=== PATIENT | female | born 1995 | race Hispanic/Latino ===

== ENCOUNTER 2016-08-25 08:06 | Emergency (ER) | payer OTHER ==
[2016-08-25] MEDS ORDERED: ONDANSETRON 4MG/2ML VIAL (J2405) As Ordered ONE (08:23)
[2016-08-25 08:53] LABS: BASO % 0.1 % (0.0-1.0); EOS # 0.1 K/mm3 (0.0-0.50); EOS % 1.4 % (0.0-3.0); LARGE UNSTAINED CELL # 0.1 K/mm3 (0.0-0.4); LARGE UNSTAINED CELL % 0.8 % (0.0-4.0); LYMPH # 0.4 K/mm3 (1.5-6.5); LYMPH % 4.2 % (24.0-44.0); MEAN CORPUSCULAR HEMOGLOBIN 29.2 pg (27.0-33.0); MEAN CORPUSCULAR HGB CONC 32.1 g/dl (32.0-36.5); MEAN CORPUSCULAR VOLUME 91.1 fl (80.0-96.0); MONO # 0.3 K/mm3 (0.0-0.8); MONO % 3.3 % (0.0-5.0); NEUTROPHILS # 7.8 K/mm3 (1.8-7.7); NEUTROPHILS % 90.2 % (36.0-66.0); PLATELET COUNT, AUTOMATED 271 k/mm3 (150-450); RED CELL DISTRIBUTION WIDTH 12.4 % (11.5-14.5); WHITE BLOOD COUNT 8.6 K/mm3 (4.0-10.0)
[2016-08-25] MEDS ORDERED: KETOROLAC 30 MG/ML VIAL (J1885) As Ordered ONE (09:00)
[2016-08-25 09:12] LABS: ALBUMIN 4.4 GM/DL (3.2-5.2); ALBUMIN/GLOBULIN RATIO 1.05 (1.00-1.93); ALKALINE PHOSPHATASE 139 U/L (45-117); ALT/SGPT 38 U/L (12-78); AMYLASE 48 U/L (25-115); ANION GAP 6 MEQ/L (8-16); AST/SGOT 31 U/L (15-37); BILIRUBIN,DIRECT 0.1 MG/DL (0.0-0.2); BILIRUBIN,TOTAL 0.4 MG/DL (0.2-1.0); BLOOD UREA NITROGEN 11 MG/DL (7-18); CALCIUM LEVEL 8.7 MG/DL (8.5-10.1); CARBON DIOXIDE LEVEL 29 MEQ/L (21-32); CHLORIDE LEVEL 104 MEQ/L (98-107); CREATININE FOR GFR 0.76 MG/DL (0.55-1.02); GLOMERULAR FILTRATION RATE > 60.0 (>60); GLUCOSE, FASTING 117 MG/DL (70-105); POTASSIUM SERUM 4.4 MEQ/L (3.5-5.1); SODIUM LEVEL 139 MEQ/L (136-145); TOTAL PROTEIN 8.6 GM/DL (6.4-8.2)
--- NOTE | 2016-08-25 10:03 | REP ---
Right upper quadrant sonography: History: Biliary colic Comparison study: CT study from June 26, 2016. Findings: Scanning through the right upper quadrant of the abdomen demonstrates a normal sized, thin-walled gallbladder without evidence of stone or polyp. Common bile duct is normal measuring 0.3 cm in greatest diameter. No focal liver lesion is seen. Liver size is normal. No pancreatic abnormality is observed. No right renal abnormality is seen. There is no evidence of ascites. The right kidney measures 10.9 x 4.0 x 3 point a cm. Impression: Negative right upper quadrant sonography. Signed by Collin Wilkes MD 08/25/2016 09:55 A
--- NOTE | 2016-08-25 10:37 | EDDOCDS ---
Physician Documentation [facility] Name: Linda oRsario Age: 21 yrs Sex: Female : 1995 Arrival Date: 08/25/2016 Time: 08:06 Bed I4 / M4 Private MD: No Pcp Disposition: 08/25/16 10:29 Discharged to Home/Self Care. Impression: Nausea and vomiting, Diarrhea, unspecified, Upper abdominal pain, unspecified. - Condition is Stable. - Discharge Instructions: Nausea and Vomiting, Tynn-lf-Dvsv, Diarrhea, Kcsz-kd-Gats. - Prescriptions for ZOFRAN ODT 4 mg - dissolve 1 tablet by ORAL route 4 times per day As needed do not chew, do not swallow whole; 10 tablet. Tylenol 325 mg Oral Tablet - take 2 tablets by ORAL route every 6 hours as needed; 30 tablet. ketorolac 10 mg Oral Tablet - take 1 tablet by ORAL route 3 times per day As needed MDD- 30mg. Up to 5 days total use.; 15 tablet. - Medication Reconciliation, Local Pharmacy Hours, Referral List Call for Appointment form. - [facility] ; When: 1 - 2 days; Reason: Recheck today's complaints, Continuance of care. Follow up: Emergency Department; Reason: Worsening of conditions. - Problem is new. - Symptoms have improved. Historical: - Allergies: no known allergies; - Home Meds: 1. dietary supplement oral tab twice a day - PMHx: none; - PSHx: heart surgery as ; - Social history: Smoking status: Patient states was never smoker of tobacco. Preferred Language: [place] Citizen. - Family history: Not pertinent. - : The pt / caregiver states he / she is not on anticoagulants. Home medication list is obtained from family members. - Exposure Risk Screening:: None identified. CRYSTAL CUTTER: 08/25 08:14 LMP 08/04/2016 kr3 Vital Signs: 08:14 BP 128 / 67; Pulse 80; Resp 16; Temp 97.6(O); Pulse Ox 99% on R/A; Weight 68.95 kg / kr3 152.01 lbs (R); Height 5 ft. 1 in. (154.94 cm) (R); 09:20 Pain 3/10; js13 10:34 BP 132 / 63; Pulse 70; Resp 18; Temp 98.6; Pulse Ox 98% ; Pain 0/10; jam1 08:14 Body Mass Index 28.72 (68.95 kg, 154.94 cm) kr3 MDM: 08:20 NS 0.9% 1000 ml IV at bolus once ordered. ef1 08:20 Ondansetron 4 mg IVP once ordered. ef1 08:20 IV Saline Lock ordered. ef1 08:20 Undress patient appropriately for examination ordered. ef1 08:21 NOTHING BY MOUTH+DIET ordered. EDMS 08:22 Amylase Ordered. EDMS 08:22 Basic Metabolic Profile Ordered. EDMS 08:22 CBC with Diff Ordered. EDMS 08:22 Lipase Ordered. EDMS 08:22 Liver Profile Ordered. EDMS 08:22 Urinalysis Ordered. EDMS 08:22 Urine Culture Ordered. EDMS 08:24 UCG by Nursing ordered. ef1 08:27 ketorolac 30 mg IVP once ordered. ef1 08:28 Gallbladder US Ordered. EDMS 08:51 Financial registration complete. lg 08:56 [facility] Payment Agreement was scanned into [employer] and attached to record. lg 08:57 Obtain sample by nasopharyngeal swab ordered. ef1 08:59 -Influenza A&B Rapid Antigen - Nose Ordered. EDMS 09:47 Basic Metabolic Profile Reviewed. ef1 09:47 CBC with Diff Reviewed. ef1 09:47 Lipase Reviewed. ef1 09:47 Liver Profile Reviewed. ef1 09:47 Urinalysis Reviewed. ef1 09:47 Amylase Reviewed. ef1 09:47 -Influenza A&B Rapid Antigen - Nose Reviewed. ef1 Point of Care Testing: Urine : 09:49 hCG Reading: Negative; Control Reading: Positive; 13 Ranges: Administered Medications: 08:42 Drug: NS 0.9% 1000 ml [sodium chloride 0.9 % intravenous solution] Route: IV; Rate: js13 bolus; Site: left antecubital; 10:33 Follow up: IV Status: Completed infusion; IV Intake: 1000ml js13 08:42 Drug: Ondansetron 4 mg [ondansetron HCl 2 mg/mL intravenous solution (2 mL)] Route: js13 IVP; Site: left antecubital; 09:00 Follow up: Response: Nausea is decreased js13 09:06 Drug: ketorolac 30 mg [ketorolac 30 mg/mL (1 mL) injection solution (1 mL)] Route: IVP; js13 Site: left antecubital; 09:20 Follow up: Pain 09/27 Adult; Response: Pain is decreased js13 Signatures: Dispatcher [employer] Stefan Reed, Leonel Reg lg Diana Pappas,RN RN kr3 Samantha Prince, PABritniC PABritniC ef1 Linnea Fuentes RN RN js13 The chart was reviewed and I authenticate all verbal orders and agree with the evaluation and treatment provided.Attachments: 08:56 [facility] Payment Agreement lg MTDD
--- NOTE | 2016-08-25 10:37 | EDDOCDS ---
Nurse's Notes [facility] Name: Linda Rosario Age: 21 yrs Sex: Female : 1995 Arrival Date: 08/25/2016 Time: 08:06 Bed I4 / M4 Private MD: No Pcp Diagnosis: Nausea and vomiting;Diarrhea, unspecified;Upper abdominal pain, unspecified Presentation: 08/25 08:12 Presenting complaint: states: vomiting began last night. Diarrhea last night kr3 plus middle of abdomen pain. Adult Sepsis Screening: The patient does not have new or worsening altered mentation. Patient's respiratory rate is less than 22. Systolic blood pressure is greater than 100. Patient has a qSOFA score of 0- Negative Sepsis Screen. Suicide/Homicide risk assessment- the patient denies having any suicidal and/or homicidal ideations and does not present with any other emotional, behavioral or mental health complaints. Status: Patient is not a server service assistant or dependent. Transition of care: patient was not received from another setting of care. 08:12 Acuity: MARIOLA Level 3 kr3 08:12 Method Of Arrival: Walkin/Carried/Asstd kr3 Triage Assessment: 08:14 General: Appears in no apparent distress, comfortable, Behavior is appropriate for age, kr3 cooperative. Pain: Location: epigastric area Pain currently is 8 out of 10 on a pain scale. Quality of pain is described as burning. HIV screening NA for this visit Offered previously. Respiratory: Respiratory effort is even, unlabored. GI: Reports diarrhea, nausea, vomiting. Derm: Skin is normal. JACKER: 08:14 LMP 08/04/2016 kr3 Historical: - Allergies: no known allergies; - Home Meds: 1. dietary supplement oral tab twice a day - PMHx: none; - PSHx: heart surgery as ; - Social history: Smoking status: Patient states was never smoker of tobacco. Preferred Language: Bulgarian. - Family history: Not pertinent. - : The pt / caregiver states he / she is not on anticoagulants. Home medication list is obtained from family members. - Exposure Risk Screening:: None identified. Screenin:25 Screening information is obtained from the patient, family members. Fall risk: No risks kr3 identified. Assistance ADL's: requires no assistance with activities of daily living. Abuse/DV Screen: The patient / caregiver reports he/she is: not in a situation that causes fear, pain or injury. Nutritional screening: No deficits noted. Advance Directives: Currently, there is no health care proxy. home support is adequate. Assessment: 08:47 General: Appears in no apparent distress, Behavior is appropriate for age, cooperative. js13 Pain: Pain currently is 4 out of 10 on a pain scale. Neurological: Level of Consciousness is awake, alert. Respiratory: Airway is patent Respiratory effort is even, unlabored, Respiratory pattern is regular, symmetrical. GI: Abdomen is non- distended Bowel sounds present X 4 quads. Abd is soft Abd is tender to palpation Reports nausea, vomiting. Derm: Skin is pink, warm & dry. 10:00 General: Appears in no apparent distress, Behavior is appropriate for age, cooperative. js13 Pain: Pain currently is 2 out of 10 on a pain scale. Neurological: Level of Consciousness is awake, alert. Respiratory: Airway is patent Respiratory effort is even, unlabored, Respiratory pattern is regular, symmetrical. GI: Abdomen is non- distended Bowel sounds present X 4 quads. Abd is soft Abd is tender to palpation. Derm: Skin is pink, warm & dry. Vital Signs: 08:14 BP 128 / 67; Pulse 80; Resp 16; Temp 97.6(O); Pulse Ox 99% on R/A; Weight 68.95 kg (R); kr3 Height 5 ft. 1 in. (154.94 cm) (R); 09:20 Pain 3/10; js13 10:34 BP 132 / 63; Pulse 70; Resp 18; Temp 98.6; Pulse Ox 98% ; Pain 0/10; jam1 08:14 Body Mass Index 28.72 (68.95 kg, 154.94 cm) kr3 Vitals: 08:14 Log In Time: August 25, 2016 at 08:06. kr3 ED Course: 08:08 Patient visited by Ty Chung Reg. mpb 08:08 Patient moved to Waiting mpb 08:09 No Pcp is Private Physician. mpb 08:13 Triage Initiated kr3 08:19 Patient moved to I4 / M4 kr3 08:20 Samantha Prince PA-C is PHCP. ef1 08:20 Lorenza Michelle MD is Attending Physician. ef1 08:20 Patient visited by Samantha Prince PA-C. ef1 08:42 Amylase Sent. js13 08:42 Basic Metabolic Profile Sent. js13 08:42 CBC with Diff Sent. js13 08:42 Lipase Sent. js13 08:42 Liver Profile Sent. js13 08:42 Inserted saline lock: 20 gauge in left The patient tolerated the procedure well. upper kr3 arm. 08:43 No procedures done that require assistance. Labs drawn. (by ED staff). Sent per order js13 to lab. 08:46 Patient visited by Samantha Prince PA-C. ef1 08:47 Patient visited by Linnea Fuentes RN. js13 08:53 Urinalysis Sent. jam1 08:53 Urine Culture Sent. jam1 08:56 Patient name changed from Linda\S\\S\Ramos Rosario\S\ to Linda\S\ \S\Ramos Rosario. EDMS 08:56 [facility] Payment Agreement was scanned into [employer] and attached to record. lg 09:06 -Influenza A&B Rapid Antigen - Nose Sent. js13 09:19 Patient visited by Samantha Prince PA-C. ef1 09:36 Patient moved to Ultrasound am17 09:47 Patient visited by Samantha Prince PA-C. ef1 09:48 Patient moved to I4 / M4 am17 09:55 Pt greeted and oriented to ED. Patient advised of names of staff involved in care, jam1 location of call hernadez, wait times and NPO status. Patient has correct armband on for positive identification. Placed in gown. Bed in low position. Call light in reach. Side rails up X 1. Adult w/ patient. Door closed. 10:00 The patient / caregiver is instructed regarding the plan of care and ED course. js13 10:00 Discontinued IV lock intact, bleeding controlled, pressure dressing applied, No js13 redness/swelling at site. 10:09 Gallbladder US Returned. EDMS 10:23 Patient visited by Samantha Prince PA-C. ef1 10:29 [facility] is Referral Physician. ef1 Administered Medications: 08:42 Drug: NS 0.9% 1000 ml [sodium chloride 0.9 % intravenous solution] Route: IV; Rate: js13 bolus; Site: left antecubital; 10:33 Follow up: IV Status: Completed infusion; IV Intake: 1000ml 08:42 Drug: Ondansetron 4 mg [ondansetron HCl 2 mg/mL intravenous solution (2 mL)] Route: IVP; Site: left antecubital; 09:00 Follow up: Response: Nausea is decreased 09:06 Drug: ketorolac 30 mg [ketorolac 30 mg/mL (1 mL) injection solution (1 mL)] Route: IVP; [facility] Site: left antecubital; 09:20 Follow up: Pain 09/27 Adult; Response: Pain is decreased Point of Care Testing: Urine : 09:49 hCG Reading: Negative; Control Reading: Positive; Ranges: Intake: 10:33 IV: 1000.00ml; Total: 1000.00ml. Order Results: Lab Order: Amylase; SPEC'M 08/25/16 08:41 Test: AMYLASE; Value: 48; Range: 25-115; Units: U/L; Status: F Lab Order: Basic Metabolic Profile; SPEC'M 08/25/16 08:41 Test: GLUCOSE, FASTING; Value: 117; Range: 70-105; Abnormal: Above high normal; Units: MG/DL; Status: F Test: BLOOD UREA NITROGEN; Value: 11; Range: 7-18; Units: MG/DL; Status: F Test: CREATININE FOR GFR; Value: 0.76; Range: 0.55-1.02; Units: MG/DL; Status: F Test: GLOMERULAR FILTRATION RATE; Value: > 60.0; Range: >60; Status: F Test: SODIUM LEVEL; Value: 139; Range: 136-145; Units: MEQ/L; Status: F Test: POTASSIUM SERUM; Value: 4.4; Range: 3.5-5.1; Units: MEQ/L; Status: F Test: CHLORIDE LEVEL; Value: 104; Range: 98-107; Units: MEQ/L; Status: F Test: CARBON DIOXIDE LEVEL; Value: 29; Range: 21-32; Units: MEQ/L; Status: F Test: ANION GAP; Value: 6; Range: 8-16; Abnormal: Below low normal; Units: MEQ/L; Status: F Test: CALCIUM LEVEL; Value: 8.7; Range: 8.5-10.1; Units: MG/DL; Status: F Test Note: ; Units are mL/min/1.73 m2 Chronic Kidney Disease Staging per NKF: Stage I & II GFR >=60 Normal to Mildly Decreased Stage III GFR 30-59 Moderately Decreased Stage IV GFR 15-29 Severely Decreased Stage V GFR <15 Very Little GFR Left ESRD GFR <15 on PROGRAM PRODUCTION SPECIALIST Lab Order: CBC with Diff; SPEC'M 08/25/16 08:40 Test: WHITE BLOOD COUNT; Value: 8.6; Range: 4.0-10.0; Units: K/mm3; Status: F Test: RED BLOOD COUNT; Value: 4.93; Range: 4.00-5.40; Units: M/mm3; Status: F Test: HEMOGLOBIN; Value: 14.4; Range: 12.0-16.0; Units: g/dl; Status: F Test: HEMATOCRIT; Value: 44.9; Range: 36.0-47.0; Units: %; Status: F Test: MEAN CORPUSCULAR VOLUME; Value: 91.1; Range: 80.0-96.0; Units: fl; Status: F Test: MEAN CORPUSCULAR HEMOGLOBIN; Value: 29.2; Range: 27.0-33.0; Units: pg; Status: F Test: MEAN CORPUSCULAR HGB CONC; Value: 32.1; Range: 32.0-36.5; Units: g/dl; Status: F Test: RED CELL DISTRIBUTION WIDTH; Value: 12.4; Range: 11.5-14.5; Units: %; Status: F Test: PLATELET COUNT, AUTOMATED; Value: 271; Range: 150-450; Units: k/mm3; Status: F Test: NEUTROPHILS %; Value: 90.2; Range: 36.0-66.0; Abnormal: Above high normal; Units: %; Status: F Test: LYMPH %; Value: 4.2; Range: 24.0-44.0; Abnormal: Below low normal; Units: %; Status: F Test: MONO %; Value: 3.3; Range: 0.0-5.0; Units: %; Status: F Test: EOS %; Value: 1.4; Range: 0.0-3.0; Units: %; Status: F Test: BASO %; Value: 0.1; Range: 0.0-1.0; Units: %; Status: F Test: LARGE UNSTAINED CELL %; Value: 0.8; Range: 0.0-4.0; Units: %; Status: F Test: NEUTROPHILS #; Value: 7.8; Range: 1.8-7.7; Abnormal: Above high normal; Units: K/mm3; Status: F Test: LYMPH #; Value: 0.4; Range: 1.5-6.5; Abnormal: Below low normal; Units: K/mm3; Status: F Test: MONO #; Value: 0.3; Range: 0.0-0.8; Units: K/mm3; Status: F Test: EOS #; Value: 0.1; Range: 0.0-0.50; Units: K/mm3; Status: F Test: BASO #; Value: 0.0; Range: 0.0-0.2; Units: K/mm3; Status: F Test: LARGE UNSTAINED CELL #; Value: 0.1; Range: 0.0-0.4; Units: K/mm3; Status: F Lab Order: Lipase; SPEC'M 08/25/16 08:41 Test: LIPASE; Value: 70; Range: 73-393; Abnormal: Below low normal; Units: U/L; Status: F Lab Order: Liver Profile; SPEC'M 08/25/16 08:41 Test: AST/SGOT; Value: 31; Range: 15-37; Units: U/L; Status: F Test: ALT/SGPT; Value: 38; Range: 12-78; Units: U/L; Status: F Test: ALKALINE PHOSPHATASE; Value: 139; Range: 45-117; Abnormal: Above high normal; Units: U/L; Status: F Test: BILIRUBIN,TOTAL; Value: 0.4; Range: 0.2-1.0; Units: MG/DL; Status: F Test: BILIRUBIN,DIRECT; Value: 0.1; Range: 0.0-0.2; Units: MG/DL; Status: F Test: TOTAL PROTEIN; Value: 8.6; Range: 6.4-8.2; Abnormal: Above high normal; Units: GM/DL; Status: F Test: ALBUMIN; Value: 4.4; Range: 3.2-5.2; Units: GM/DL; Status: F Test: ALBUMIN/GLOBULIN RATIO; Value: 1.05; Range: 1.00-1.93; Status: F Lab Order: Urinalysis; SPEC'M 08/25/16 08:50 Test: APPEARANCE, URINE; Value: HAZY; Range: CLEAR; Status: F Test: COLOR, URINE; Value: YELLOW; Range: YELLOW; Status: F Test: PH,URINE; Value: 8.0; Range: 5.0-9.0; Units: UNITS; Status: F Test: SPECIFIC GRAVITY URINE AUTO; Value: 1.021; Range: 1.002-1.035; Status: F Test: PROTEIN, URINE AUTO; Value: NEGATIVE; Range: NEGATIVE; Units: mg/dL; Status: F Test: GLUCOSE, URINE (UA) AUTO; Value: NEGATIVE; Range: NEGATIVE; Units: mg/dL; Status: F Test: KETONE, URINE AUTO; Value: TRACE; Range: NEGATIVE; Abnormal: Above high normal; Units: mg/dL; Status: F Test: UROBILINOGEN, URINE AUTO; Value: 0.2; Range: 0.0-2.0; Units: mg/dL; Status: F Test: BILIRUBIN, URINE AUTO; Value: NEGATIVE; Range: NEGATIVE; Status: F Test: NITRITE, URINE AUTO; Value: NEGATIVE; Range: NEGATIVE; Status: F Test: LEUKOCYTE ESTERASE, URINE AUTO; Value: NEGATIVE; Range: NEGATIVE; Status: F Test: BLOOD, URINE BLOOD; Value: NEGATIVE; Range: NEGATIVE; Status: F Test: WBC, URINE AUTO; Value: 1; Range: 0-3; Units: /HPF; Status: F Test: RBC, URINE AUTO; Value: 1; Range: 0-3; Units: /HPF; Status: F Test: BACTERIA, URINE AUTO; Value: NEGATIVE; Range: NEGATIVE; Status: F Test: SQUAMOUS EPITHELIAL CELL UR AU; Value: 2; Range: 0-6; Units: /HPF; Status: F Test: MUCUS, URINE; Value: SMALL; Range: NEGATIVE; Status: F Test: HYALINE CAST, URINE AUTO; Value: 0; Range: 0-1; Units: /LPF; Status: F Lab Order: -Influenza A&B Rapid Antigen - Nose; SPEC'M 08/25/16 09:04 Test: INFLUENZA A RAPID SCR by ICA; Value: INFLUENZA A RESULTS NEGATIVE; Status: F Test: INFLUENZA A RAPID SCR by ICA; Value: Comments:; Status: F Test: INFLUENZA B RAPID SCR by ICA; Value: INFLUENZA B RESULTS NEGATIVE; Status: F Test Note: ; The Influenza test is a direct rapid immunoassay for the qualitative detection of Influenza viral antigen. Cell culture (Viral Culture) testing should be considered to confirm NEGATIVE results and to assist in detecting other viruses that can provide similar clinical symptoms. Please contact the lab within 24 hours ([phone]) if confirmatory testing is desired. Radiology Order: Gallbladder US Test: Gallbladder US REASON FOR EXAMINATION: Biliary Colic; Right upper quadrant sonography:; ; History: Biliary colic; ; Comparison study: CT study from June 26, 2016.; ; Findings: Scanning through the right upper quadrant of the abdomen demonstrates a; normal sized, thin-walled gallbladder without evidence of stone or polyp. Common; bile duct is normal measuring 0.3 cm in greatest diameter. No focal liver lesion; is seen. Liver size is normal. No pancreatic abnormality is observed. No right; renal abnormality is seen. There is no evidence of ascites. The right kidney; measures 10.9 x 4.0 x 3 point a cm.; ; Impression:; ; Negative right upper quadrant sonography.; ; ; Signed by; Collin Wilkes MD 08/25/2016 09:55 A; Outcome: 10:00 Discharge Assessment: Patient awake, alert and oriented x 3. No cognitive and/or js13 functional deficits noted. Patient verbalized understanding of disposition instructions. patient administered narcotics - no. The following High Risk Discharge criteria are identified: None. Discharged to home ambulatory, with significant other. Condition: stable. Discharge instructions given to patient, Instructed on discharge instructions, follow up and referral plans. medication usage, Demonstrated understanding of instructions, medications, Pt was receptive of discharge instructions/ teaching. Prescriptions given X 3. Ultrasound Study completed. Property :Personal belongings accompany Pt. 10:29 Discharge ordered by Provider. ef1 10:36 Patient left the ED. js13 Signatures: Dispatcher [employer] EDMS Alexa Cornejo, SCIENTIFIC AFFAIRS MANAGER SCIENTIFIC AFFAIRS MANAGER jam1 Stefan Ruiz, Leonel Reg lg Diana Pappas,RN RN kr3 Samantha Prince, PA-C PA-C ef1 Linnea Fuentes,RN RN js13 Marcelle Bermudez am17 Ty Chung, Reg Reg mpb MTDD
--- NOTE | 2016-08-27 11:37 | EDDOCDS ---
Physician Documentation [facility] Name: Linda Moody Age: 21 yrs Sex: Female : 1995 Arrival Date: 08/25/2016 Time: 08:06 Bed I4 / M4 Private MD: No Pcp Disposition: 08/25/16 10:29 Discharged to Home/Self Care. Impression: Nausea and vomiting, Diarrhea, unspecified, Upper abdominal pain, unspecified. - Condition is Stable. - Discharge Instructions: Nausea and Vomiting, Qgyf-sw-Uugq, Diarrhea, Hftb-qt-Hcoh. - Prescriptions for ZOFRAN ODT 4 mg - dissolve 1 tablet by ORAL route 4 times per day As needed do not chew, do not swallow whole; 10 tablet. Tylenol 325 mg Oral Tablet - take 2 tablets by ORAL route every 6 hours as needed; 30 tablet. ketorolac 10 mg Oral Tablet - take 1 tablet by ORAL route 3 times per day As needed MDD- 30mg. Up to 5 days total use.; 15 tablet. - Medication Reconciliation, Local Pharmacy Hours, Referral List Call for Appointment form. - [facility] ; When: 1 - 2 days; Reason: Recheck today's complaints, Continuance of care. Follow up: Emergency Department; Reason: Worsening of conditions. - Problem is new. - Symptoms have improved. Historical: - Allergies: no known allergies; - Home Meds: 1. dietary supplement oral tab twice a day - PMHx: none; - PSHx: heart surgery as ; - Social history: Smoking status: Patient states was never smoker of tobacco. Preferred Language: Faroese. - Family history: Not pertinent. - : The pt / caregiver states he / she is not on anticoagulants. Home medication list is obtained from family members. - Exposure Risk Screening:: None identified. SUPERVISOR TAN ROOM: 08/25 08:14 LMP 08/04/2016 kr3 Vital Signs: 08:14 BP 128 / 67; Pulse 80; Resp 16; Temp 97.6(O); Pulse Ox 99% on R/A; Weight 68.95 kg / kr3 152.01 lbs (R); Height 5 ft. 1 in. (154.94 cm) (R); 09:20 Pain 3/10; js13 10:34 BP 132 / 63; Pulse 70; Resp 18; Temp 98.6; Pulse Ox 98% ; Pain 0/10; jam1 08:14 Body Mass Index 28.72 (68.95 kg, 154.94 cm) kr3 MDM: 08:20 NS 0.9% 1000 ml IV at bolus once ordered. ef1 08:20 Ondansetron 4 mg IVP once ordered. ef1 08:20 IV Saline Lock ordered. ef1 08:20 Undress patient appropriately for examination ordered. ef1 08:21 NOTHING BY MOUTH+DIET ordered. EDMS 08:22 Amylase Ordered. EDMS 08:22 Basic Metabolic Profile Ordered. EDMS 08:22 CBC with Diff Ordered. EDMS 08:22 Lipase Ordered. EDMS 08:22 Liver Profile Ordered. EDMS 08:22 Urinalysis Ordered. EDMS 08:22 Urine Culture Ordered. EDMS 08:24 UCG by Nursing ordered. ef1 08:27 ketorolac 30 mg IVP once ordered. ef1 08:28 Gallbladder US Ordered. EDMS 08:51 Financial registration complete. lg 08:56 [facility] Payment Agreement was scanned into [employer] and attached to record. lg 08:57 Obtain sample by nasopharyngeal swab ordered. ef1 08:59 -Influenza A&B Rapid Antigen - Nose Ordered. EDMS 09:47 Basic Metabolic Profile Reviewed. ef1 09:47 CBC with Diff Reviewed. ef1 09:47 Lipase Reviewed. ef1 09:47 Liver Profile Reviewed. ef1 09:47 Urinalysis Reviewed. ef1 09:47 Amylase Reviewed. ef1 09:47 -Influenza A&B Rapid Antigen - Nose Reviewed. ef1 12:54 T-Sheet-- Draft Copy was scanned into [employer] and attached to record. klr 14:22 Radiology Report was scanned into [employer] and attached to record. gb Point of Care Testing: Urine : 09:49 hCG Reading: Negative; Control Reading: Positive; js13 Ranges: Administered Medications: 08:42 Drug: NS 0.9% 1000 ml [sodium chloride 0.9 % intravenous solution] Route: IV; Rate: js13 bolus; Site: left antecubital; 10:33 Follow up: IV Status: Completed infusion; IV Intake: 1000ml js13 08:42 Drug: Ondansetron 4 mg [ondansetron HCl 2 mg/mL intravenous solution (2 mL)] Route: js13 IVP; Site: left antecubital; 09:00 Follow up: Response: Nausea is decreased 13 09:06 Drug: ketorolac 30 mg [ketorolac 30 mg/mL (1 mL) injection solution (1 mL)] Route: IVP; js13 Site: left antecubital; 09:20 Follow up: Pain 3/10 Adult; Response: Pain is decreased Signatures: Dispatcher [employer] EDMS Mireya Gray, Reg Reg gb Stefan Ruiz, Reg Reg lg Diana Pappas,RN RN kr3 Samantha Prince PABritniC PA-C ef1 Linnea FuentesRN RN js13 Sharmila Carter klsherri The chart was reviewed and I authenticate all verbal orders and agree with the evaluation and treatment provided.Attachments: 08:56 [facility] Payment Agreement lg 12:54 T-Sheet-- Draft Copy klr Chart Complete MTDD
--- NOTE | 2016-08-27 11:37 | EDDOCDS ---
Physician Documentation [facility] Name: Linda Moody Age: 21 yrs Sex: Female : 1995 Arrival Date: 08/25/2016 Time: 08:06 Bed I4 / M4 Private MD: No Pcp Disposition: 08/25/16 10:29 Discharged to Home/Self Care. Impression: Nausea and vomiting, Diarrhea, unspecified, Upper abdominal pain, unspecified. - Condition is Stable. - Discharge Instructions: Nausea and Vomiting, [id number], Diarrhea, Pxiv-ba-[id number]. - Prescriptions for ZOFRAN ODT 4 mg - dissolve 1 tablet by ORAL route 4 times per day As needed do not chew, do not swallow whole; 10 tablet. Tylenol 325 mg Oral Tablet - take 2 tablets by ORAL route every 6 hours as needed; 30 tablet. ketorolac 10 mg Oral Tablet - take 1 tablet by ORAL route 3 times per day As needed MDD- 30mg. Up to 5 days total use.; 15 tablet. - Medication Reconciliation, Local Pharmacy Hours, Referral List Call for Appointment form. - [facility] ; When: 1 - 2 days; Reason: Recheck today's complaints, Continuance of care. Follow up: Emergency Department; Reason: Worsening of conditions. - Problem is new. - Symptoms have improved. Historical: - Allergies: no known allergies; - Home Meds: 1. dietary supplement oral tab twice a day - PMHx: none; - PSHx: heart surgery as ; - Social history: Smoking status: Patient states was never smoker of tobacco. Preferred Language: Brazilian. - Family history: Not pertinent. - : The pt / caregiver states he / she is not on anticoagulants. Home medication list is obtained from family members. - Exposure Risk Screening:: None identified. 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 1 in. (154.94 cm) (R); 09:20 Pain 3/10; js13 10:34 BP 132 / 63; Pulse 70; Resp 18; Temp 98.6; Pulse Ox 98% ; Pain 0/10; jam1 08:14 Body Mass Index 28.72 (68.95 kg, 154.94 cm) kr3 MDM: 08:20 NS 0.9% 1000 ml IV at bolus once ordered. ef1 08:20 Ondansetron 4 mg IVP once ordered. ef1 08:20 IV Saline Lock ordered. ef1 08:20 Undress patient appropriately for examination ordered. ef1 08:21 NOTHING BY MOUTH+DIET ordered. EDMS 08:22 Amylase Ordered. EDMS 08:22 Basic Metabolic Profile Ordered. EDMS 08:22 CBC with Diff Ordered. EDMS 08:22 Lipase Ordered. EDMS 08:22 Liver Profile Ordered. EDMS 08:22 Urinalysis Ordered. EDMS 08:22 Urine Culture Ordered. EDMS 08:24 UCG by Nursing ordered. ef1 08:27 ketorolac 30 mg IVP once ordered. ef1 08:28 Gallbladder US Ordered. EDMS 08:51 Financial registration complete. lg 08:56 [facility] [place] Payment Agreement was scanned into AOL and attached to record. lg 08:57 Obtain sample by nasopharyngeal swab ordered. ef1 08:59 -Influenza A&B Rapid Antigen - Nose Ordered. EDMS 09:47 Basic Metabolic Profile Reviewed. ef1 09:47 CBC with Diff Reviewed. ef1 09:47 Lipase Reviewed. ef1 09:47 Liver Profile Reviewed. ef1 09:47 Urinalysis Reviewed. ef1 09:47 Amylase Reviewed. ef1 09:47 -Influenza A&B Rapid Antigen - Nose Reviewed. ef1 12:54 T-Sheet-- Draft Copy was scanned into AOL and attached to record. klr 14:22 Radiology Report was scanned into AOL and attached to record. gb Point of Care Testing: Urine : 09:49 hCG Reading: Negative; Control Reading: Positive; js13 Ranges: Administered Medications: 08:42 Drug: NS 0.9% 1000 ml [sodium chloride 0.9 % intravenous solution] Route: IV; Rate: js13 bolus; Site: left antecubital; 10:33 Follow up: IV Status: Completed infusion; IV Intake: 1000ml js13 08:42 Drug: Ondansetron 4 mg [ondansetron HCl 2 mg/mL intravenous solution (2 mL)] Route: js13 IVP; Site: left antecubital; 09:00 Follow up: Response: Nausea is decreased 13 09:06 Drug: ketorolac 30 mg [ketorolac 30 mg/mL (1 mL) injection solution (1 mL)] Route: IVP; js13 Site: left antecubital; 09:20 Follow up: Pain 3/10 Adult; Response: Pain is decreased Signatures: Dispatcher MedHost EDMS Mireya Gray, Reg Reg gb Stefan Ruiz, Reg Reg lg Diana Pappas,RN RN kr3 Samantha Prince PABritniC PA-C ef1 Linnea FuentesRN RN js13 Sharmila Carter klsherri The chart was reviewed and I authenticate all verbal orders and agree with the evaluation and treatment provided.Attachments: 08:56 [facility] Payment Agreement lg 12:54 T-Sheet-- Draft Copy klr Chart Complete MTDD
--- NOTE | 2016-08-27 11:37 | EDDOCDS ---
Nurse's Notes [facility] Name: Linda Moody Age: 21 yrs Sex: Female : 1995 Arrival Date: 08/25/2016 Time: 08:06 Bed I4 / M4 Private MD: No Pcp Diagnosis: Nausea and vomiting;Diarrhea, unspecified;Upper abdominal pain, unspecified Presentation: 08/25 08:12 Presenting complaint: states: vomiting began last night. Diarrhea last night kr3 plus middle of abdomen pain. Adult Sepsis Screening: The patient does not have new or worsening altered mentation. Patient's respiratory rate is less than 22. Systolic blood pressure is greater than 100. Patient has a qSOFA score of 0- Negative Sepsis Screen. Suicide/Homicide risk assessment- the patient denies having any suicidal and/or homicidal ideations and does not present with any other emotional, behavioral or mental health complaints. Status: Patient is not a internal revenue service agent or dependent. Transition of care: patient was not received from another setting of care. 08:12 Acuity: MARIOLA Level 3 kr3 08:12 Method Of Arrival: Walkin/Carried/Asstd kr3 Triage Assessment: 08:14 General: Appears in no apparent distress, comfortable, Behavior is appropriate for age, kr3 cooperative. Pain: Location: epigastric area Pain currently is 8 out of 10 on a pain scale. Quality of pain is described as burning. HIV screening NA for this visit Offered previously. Respiratory: Respiratory effort is even, unlabored. GI: Reports diarrhea, nausea, vomiting. Derm: Skin is normal. 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 dietary supplement oral tab twice a day - PMHx: none; - PSHx: heart surgery as ; - Social history: Smoking status: Patient states was never smoker of tobacco. Preferred Language: Indonesian. - Family history: Not pertinent. - : The pt / caregiver states he / she is not on anticoagulants. Home medication list is obtained from family members. - Exposure Risk Screening:: None identified. Screenin:25 Screening information is obtained from the patient, family members. Fall risk: No risks kr3 identified. Assistance ADL's: requires no assistance with activities of daily living. Abuse/DV Screen: The patient / caregiver reports he/she is: not in a situation that causes fear, pain or injury. Nutritional screening: No deficits noted. Advance Directives: Currently, there is no health care proxy. home support is adequate. Assessment: 08:47 General: Appears in no apparent distress, Behavior is appropriate for age, cooperative. js13 Pain: Pain currently is 4 out of 10 on a pain scale. Neurological: Level of Consciousness is awake, alert. Respiratory: Airway is patent Respiratory effort is even, unlabored, Respiratory pattern is regular, symmetrical. GI: Abdomen is non- distended Bowel sounds present X 4 quads. Abd is soft Abd is tender to palpation Reports nausea, vomiting. Derm: Skin is pink, warm & dry. 10:00 General: Appears in no apparent distress, Behavior is appropriate for age, cooperative. js13 Pain: Pain currently is 2 out of 10 on a pain scale. Neurological: Level of Consciousness is awake, alert. Respiratory: Airway is patent Respiratory effort is even, unlabored, Respiratory pattern is regular, symmetrical. GI: Abdomen is non- distended Bowel sounds present X 4 quads. Abd is soft Abd is tender to palpation. Derm: Skin is pink, warm & dry. Vital Signs: 08:14 BP 128 / 67; Pulse 80; Resp 16; Temp 97.6(O); Pulse Ox 99% on R/A; Weight 68.95 kg (R); kr3 Height 5 ft. 1 in. (154.94 cm) (R); 09:20 Pain 3/10; js13 10:34 BP 132 / 63; Pulse 70; Resp 18; Temp 98.6; Pulse Ox 98% ; Pain 0/10; jam1 08:14 Body Mass Index 28.72 (68.95 kg, 154.94 cm) kr3 Vitals: 08:14 Log In Time: August 25, 2016 at 08:06. kr3 ED Course: 08:08 Patient visited by Ty Chung Reg. mpb 08:08 Patient moved to Waiting mpb 08:09 No Pcp is Private Physician. mpb 08:13 Triage Initiated kr3 08:19 Patient moved to I4 / M4 kr3 08:20 Samantha Prince PA-C is PHCP. ef1 08:20 Lorenza Michelle MD is Attending Physician. ef1 08:20 Patient visited by Samantha Prince PA-C. ef1 08:42 Amylase Sent. js13 08:42 Basic Metabolic Profile Sent. js13 08:42 CBC with Diff Sent. js13 08:42 Lipase Sent. js13 08:42 Liver Profile Sent. js13 08:42 Inserted saline lock: 20 gauge in left The patient tolerated the procedure well. upper kr3 arm. 08:43 No procedures done that require assistance. Labs drawn. (by ED staff). Sent per order js13 to lab. 08:46 Patient visited by Samantha Prince PA-C. ef1 08:47 Patient visited by Linnea Fuentes RN. js13 08:53 Urinalysis Sent. jam1 08:53 Urine Culture Sent. jam1 08:56 Patient name changed from Linda\S\\S\Ramos Rosario\S\ to Linda\S\ \S\Ramos Rosario. EDMS 08:56 [facility] [place] Payment Agreement was scanned into CallVU and attached to record. lg 09:06 -Influenza A&B Rapid Antigen - Nose Sent. js13 09:19 Patient visited by Samantha Prince PA-C. ef1 09:36 Patient moved to Ultrasound am17 09:47 Patient visited by Samantha Prince PA-C. ef1 09:48 Patient moved to I4 / M4 am17 09:55 Pt greeted and oriented to ED. Patient advised of names of staff involved in care, jam1 location of call hernadez, wait times and NPO status. Patient has correct armband on for positive identification. Placed in gown. Bed in low position. Call light in reach. Side rails up X 1. Adult w/ patient. Door closed. 10:00 The patient / caregiver is instructed regarding the plan of care and ED course. js13 10:00 Discontinued IV lock intact, bleeding controlled, pressure dressing applied, No js13 redness/swelling at site. 10:09 Gallbladder US Returned. EDMS 10:23 Patient visited by Samantha Prince PA-C. ef1 10:29 [facility] is Referral Physician. ef1 12:54 T-Sheet-- Draft Copy was scanned into CallVU and attached to record. klr 14:22 Radiology Report was scanned into CallVU and attached to record. gb 0206 11:49 Patient name changed from Linda\S\ \S\Ramos Rosario\S\ to Linda\S\ \S\Ramos-Rosario. EDMS Administered Medications: 08/25 08:42 Drug: NS 0.9% 1000 ml [sodium chloride 0.9 % intravenous solution] Route: IV; Rate: js13 bolus; Site: left antecubital; 10:33 Follow up: IV Status: Completed infusion; IV Intake: 1000ml 08:42 Drug: Ondansetron 4 mg [ondansetron HCl 2 mg/mL intravenous solution (2 mL)] Route: js13 IVP; Site: left antecubital; 09:00 Follow up: Response: Nausea is decreased 13 09:06 Drug: ketorolac 30 mg [ketorolac 30 mg/mL (1 mL) injection solution (1 mL)] Route: IVP; 13 Site: left antecubital; 09:20 Follow up: Pain 3/10 Adult; Response: Pain is decreased 13 Point of Care Testing: Urine : 09:49 hCG Reading: Negative; Control Reading: Positive; 13 Ranges: Intake: 10:33 IV: 1000.00ml; Total: 1000.00ml. 13 Order Results: Lab Order: Amylase; SPEC'M 08/25/16 08:41 Test: AMYLASE; Value: 48; Range: 25-115; Units: U/L; Status: F Lab Order: Basic Metabolic Profile; SPEC'M 08/25/16 08:41 Test: GLUCOSE, FASTING; Value: 117; Range: 70-105; Abnormal: Above high normal; Units: MG/DL; Status: F Test: BLOOD UREA NITROGEN; Value: 11; Range: 7-18; Units: MG/DL; Status: F Test: CREATININE FOR GFR; Value: 0.76; Range: 0.55-1.02; Units: MG/DL; Status: F Test: GLOMERULAR FILTRATION RATE; Value: > 60.0; Range: >60; Status: F Test: SODIUM LEVEL; Value: 139; Range: 136-145; Units: MEQ/L; Status: F Test: POTASSIUM SERUM; Value: 4.4; Range: 3.5-5.1; Units: MEQ/L; Status: F Test: CHLORIDE LEVEL; Value: 104; Range: 98-107; Units: MEQ/L; Status: F Test: CARBON DIOXIDE LEVEL; Value: 29; Range: 21-32; Units: MEQ/L; Status: F Test: ANION GAP; Value: 6; Range: 8-16; Abnormal: Below low normal; Units: MEQ/L; Status: F Test: CALCIUM LEVEL; Value: 8.7; Range: 8.5-10.1; Units: MG/DL; Status: F Test Note: ; Units are mL/min/1.73 m2 Chronic Kidney Disease Staging per NKF: Stage I & II GFR >=60 Normal to Mildly Decreased Stage III GFR 30-59 Moderately Decreased Stage IV GFR 15-29 Severely Decreased Stage V GFR <15 Very Little GFR Left ESRD GFR <15 on GAMBLING BROKER Lab Order: CBC with Diff; SPEC'M 08/25/16 08:40 Test: WHITE BLOOD COUNT; Value: 8.6; Range: 4.0-10.0; Units: K/mm3; Status: F Test: RED BLOOD COUNT; Value: 4.93; Range: 4.00-5.40; Units: M/mm3; Status: F Test: HEMOGLOBIN; Value: 14.4; Range: 12.0-16.0; Units: g/dl; Status: F Test: HEMATOCRIT; Value: 44.9; Range: 36.0-47.0; Units: %; Status: F Test: MEAN CORPUSCULAR VOLUME; Value: 91.1; Range: 80.0-96.0; Units: fl; Status: F Test: MEAN CORPUSCULAR HEMOGLOBIN; Value: 29.2; Range: 27.0-33.0; Units: pg; Status: F Test: MEAN CORPUSCULAR HGB CONC; Value: 32.1; Range: 32.0-36.5; Units: g/dl; Status: F Test: RED CELL DISTRIBUTION WIDTH; Value: 12.4; Range: 11.5-14.5; Units: %; Status: F Test: PLATELET COUNT, AUTOMATED; Value: 271; Range: 150-450; Units: k/mm3; Status: F Test: NEUTROPHILS %; Value: 90.2; Range: 36.0-66.0; Abnormal: Above high normal; Units: %; Status: F Test: LYMPH %; Value: 4.2; Range: 24.0-44.0; Abnormal: Below low normal; Units: %; Status: F Test: MONO %; Value: 3.3; Range: 0.0-5.0; Units: %; Status: F Test: EOS %; Value: 1.4; Range: 0.0-3.0; Units: %; Status: F Test: BASO %; Value: 0.1; Range: 0.0-1.0; Units: %; Status: F Test: LARGE UNSTAINED CELL %; Value: 0.8; Range: 0.0-4.0; Units: %; Status: F Test: NEUTROPHILS #; Value: 7.8; Range: 1.8-7.7; Abnormal: Above high normal; Units: K/mm3; Status: F Test: LYMPH #; Value: 0.4; Range: 1.5-6.5; Abnormal: Below low normal; Units: K/mm3; Status: F Test: MONO #; Value: 0.3; Range: 0.0-0.8; Units: K/mm3; Status: F Test: EOS #; Value: 0.1; Range: 0.0-0.50; Units: K/mm3; Status: F Test: BASO #; Value: 0.0; Range: 0.0-0.2; Units: K/mm3; Status: F Test: LARGE UNSTAINED CELL #; Value: 0.1; Range: 0.0-0.4; Units: K/mm3; Status: F Lab Order: Lipase; SPEC'M 08/25/16 08:41 Test: LIPASE; Value: 70; Range: 73-393; Abnormal: Below low normal; Units: U/L; Status: F Lab Order: Liver Profile; SPEC'M 08/25/16 08:41 Test: AST/SGOT; Value: 31; Range: 15-37; Units: U/L; Status: F Test: ALT/SGPT; Value: 38; Range: 12-78; Units: U/L; Status: F Test: ALKALINE PHOSPHATASE; Value: 139; Range: 45-117; Abnormal: Above high normal; Units: U/L; Status: F Test: BILIRUBIN,TOTAL; Value: 0.4; Range: 0.2-1.0; Units: MG/DL; Status: F Test: BILIRUBIN,DIRECT; Value: 0.1; Range: 0.0-0.2; Units: MG/DL; Status: F Test: TOTAL PROTEIN; Value: 8.6; Range: 6.4-8.2; Abnormal: Above high normal; Units: GM/DL; Status: F Test: ALBUMIN; Value: 4.4; Range: 3.2-5.2; Units: GM/DL; Status: F Test: ALBUMIN/GLOBULIN RATIO; Value: 1.05; Range: 1.00-1.93; Status: F Lab Order: Urinalysis; SPEC'M 08/25/16 08:50 Test: APPEARANCE, URINE; Value: HAZY; Range: CLEAR; Status: F Test: COLOR, URINE; Value: YELLOW; Range: YELLOW; Status: F Test: PH,URINE; Value: 8.0; Range: 5.0-9.0; Units: UNITS; Status: F Test: SPECIFIC GRAVITY URINE AUTO; Value: 1.021; Range: 1.002-1.035; Status: F Test: PROTEIN, URINE AUTO; Value: NEGATIVE; Range: NEGATIVE; Units: mg/dL; Status: F Test: GLUCOSE, URINE (UA) AUTO; Value: NEGATIVE; Range: NEGATIVE; Units: mg/dL; Status: F Test: KETONE, URINE AUTO; Value: TRACE; Range: NEGATIVE; Abnormal: Above high normal; Units: mg/dL; Status: F Test: UROBILINOGEN, URINE AUTO; Value: 0.2; Range: 0.0-2.0; Units: mg/dL; Status: F Test: BILIRUBIN, URINE AUTO; Value: NEGATIVE; Range: NEGATIVE; Status: F Test: NITRITE, URINE AUTO; Value: NEGATIVE; Range: NEGATIVE; Status: F Test: LEUKOCYTE ESTERASE, URINE AUTO; Value: NEGATIVE; Range: NEGATIVE; Status: F Test: BLOOD, URINE BLOOD; Value: NEGATIVE; Range: NEGATIVE; Status: F Test: WBC, URINE AUTO; Value: 1; Range: 0-3; Units: /HPF; Status: F Test: RBC, URINE AUTO; Value: 1; Range: 0-3; Units: /HPF; Status: F Test: BACTERIA, URINE AUTO; Value: NEGATIVE; Range: NEGATIVE; Status: F Test: SQUAMOUS EPITHELIAL CELL UR AU; Value: 2; Range: 0-6; Units: /HPF; Status: F Test: MUCUS, URINE; Value: SMALL; Range: NEGATIVE; Status: F Test: HYALINE CAST, URINE AUTO; Value: 0; Range: 0-1; Units: /LPF; Status: F Lab Order: Urine Culture; SPEC'M 08/25/16 08:50 Test: URINE CULTURE; Value: <EXTERNAL COMMENT eCWMed> FULL REPORT IN LAB NOTES (eCW and Medent).; Status: F Test: URINE CULTURE; Value: URINE CULTURE RESULT NO GROWTH CLINICAL SIGNIFICANCE 1 ORGANISM; Status: F Lab Order: -Influenza A&B Rapid Antigen - Nose; SPEC'M 08/25/16 09:04 Test: INFLUENZA A RAPID SCR by ICA; Value: INFLUENZA A RESULTS NEGATIVE; Status: F Test: INFLUENZA A RAPID SCR by ICA; Value: Comments:; Status: F Test: INFLUENZA B RAPID SCR by ICA; Value: INFLUENZA B RESULTS NEGATIVE; Status: F Test Note: ; The Influenza test is a direct rapid immunoassay for the qualitative detection of Influenza viral antigen. Cell culture (Viral Culture) testing should be considered to confirm NEGATIVE results and to assist in detecting other viruses that can provide similar clinical symptoms. Please contact the lab within 24 hours ([phone] if confirmatory testing is desired. Radiology Order: Gallbladder US Test: Gallbladder US REASON FOR EXAMINATION: Biliary Colic; Right upper quadrant sonography:; ; History: Biliary colic; ; Comparison study: CT study from June 26, 2016.; ; Findings: Scanning through the right upper quadrant of the abdomen demonstrates a; normal sized, thin-walled gallbladder without evidence of stone or polyp. Common; bile duct is normal measuring 0.3 cm in greatest diameter. No focal liver lesion; is seen. Liver size is normal. No pancreatic abnormality is observed. No right; renal abnormality is seen. There is no evidence of ascites. The right kidney; measures 10.9 x 4.0 x 3 point a cm.; ; Impression:; ; Negative right upper quadrant sonography.; ; ; Signed by; Collin Wilkes MD 08/25/2016 09:55 A; Outcome: 10:00 Discharge Assessment: Patient awake, alert and oriented x 3. No cognitive and/or js13 functional deficits noted. Patient verbalized understanding of disposition instructions. patient administered narcotics - no. The following High Risk Discharge criteria are identified: None. Discharged to home ambulatory, with significant other. Condition: stable. Discharge instructions given to patient, Instructed on discharge instructions, follow up and referral plans. medication usage, Demonstrated understanding of instructions, medications, Pt was receptive of discharge instructions/ teaching. Prescriptions given X 3. Ultrasound Study completed. Property :Personal belongings accompany Pt. 10:29 Discharge ordered by Provider. ef1 10:36 Patient left the ED. js13 Signatures: Dispatcher Med[employer] EDMS Alexa Cornejo, TAG PRESS OPERATOR TAG PRESS OPERATOR jam1 Mireya Gray, Reg Reg gb Stefan Ruiz, Reg Reg lg Diana Pappas,RN RN kr3 Samantha Prince, PA-C PA-C ef1 Linnea Fuentes,RN RN js13 Marcelle Bermudez am17 Ty Chung, Reg Reg mpb Sharmila Carter Chart Complete MTDD
== END 2016-08-25 10:36 | disposition home or self-care (01) ==
LOC: M ED 08:06
DX: R11.2 Nausea with vomiting, unspecified (principal); R19.7 Diarrhea, unspecified; R10.11 Right upper quadrant pain
CPT/HCPCS: 36415; 76705; 80048; 80076; 81001; 81025; 82150; 83690; 85025; 87086; 87804; 96361; 96374; 96375; 99284; J1885; J2405